=== PATIENT | female | born 1975 | race Caucasian/White ===

== ENCOUNTER 2018-07-16 08:52 | Day surgery (SDC) | payer OTHER ==
[2018-07-16 09:21] VITALS: BMI 28.7
[2018-07-16 09:50] VITALS: O2SAT 100
[2018-07-16] MEDS ORDERED: Lactated Ringer's 1,000 ML IV ONE (10:35)
--- NOTE | 2018-07-16 10:38 | CP.SDSHP ---
Same Day Surgery H & P - History Proposed Procedure: EGD Pre-Op Diagnosis: SEE NOTES - Previous Medical/Surgical History Misc: Other Pain: 4.Moderate Pain Previous Surgical History: C/SEC. , - Allergies Allergies: Allergies No Known Allergies Allergy (Verified 07/16/18 09:22) - Physical Exam General Appearance: N Vital Signs: Vital Signs 07/16/18 09:22 Temperature 98.9 F Pulse Rate 115 H Respiratory 20 Rate Blood Pressure 145/94 H O2 Sat by Pulse 100 Oximetry Mental Status: Alert & Oriented x3 Neuro: WNL Heart: WNL Lungs: WNL GI: Other - {Optional Preform as Required} Breast: WNL Abdomen: Other Rectal: Other Integument: WNL : WNL Ortho: Other ENT: WNL - Impression Pt. Evaluated Today:Candidate for Anesthesia & Procedure: Yes - Date & Time Time: 10:37 Short Stay Discharge - Short Stay Discharge Admitting Diagnosis/Reason for Visit: FUNCTIONAL DYSPEPSIA Disposition: HOME/ ROUTINE Referrals: Ortega Bradford MD [Primary Care Provider] -
[2018-07-16] MEDS ORDERED: Lidocaine Hydrochloride 5 ML INJ ONE (10:42)
[2018-07-16] MEDS ORDERED: Propofol 10 mg/ml Inj (20 ML) ONE (10:42)
[2018-07-16] MEDS ORDERED: Belladonna-Phenobarbital PO ONE ×2 (10:45→12:00)
[2018-07-16] MEDS ORDERED: Sucralfate 1 gm/10 ml Oral Susp UD PO ONE ×2 (10:45→12:00)
[2018-07-16 11:12] VITALS: TEMP 99.3
[2018-07-16 12:43] VITALS: BP 123/77; PULSE 97; RESP 13
== END 2018-07-16 12:41 | disposition home or self-care (01) ==
LOC: C.ENDO 08:52
PROVIDERS: ATTEND Specialist
DX: K29.70 Gastritis, unspecified, without bleeding (principal); K30 Functional dyspepsia; K20.9 Esophagitis, unspecified; K44.9 Diaphragmatic hernia without obstruction or gangrene; K31.7 Polyp of stomach and duodenum
CPT/HCPCS: 43239; 84703; 88305; J2704; J7120

== ENCOUNTER 2018-07-27 08:36 | Day surgery (SDC) | payer OTHER | END 2018-07-27 12:00 | disposition home or self-care (01) | LOC: C.ENDO 08:36 | DX: Z12.11 Encounter for screening for malignant neoplasm of colon (principal); K64.8 Other hemorrhoids; K64.4 Residual hemorrhoidal skin tags; K58.9 Irritable bowel syndrome, unspecified; E78.5 Hyperlipidemia, unspecified; K21.9 Gastro-esophageal reflux disease without esophagitis ==